=== PATIENT | male | born 1965 | race Caucasian/White ===

== ENCOUNTER 2020-12-29 08:54 | Emergency (ER) | payer OTHER, SELFPAY ==
[2020-12-29 09:02] VITALS: BP 115/69; PULSE 142; RESP 20; TEMP 36.3; O2SAT 97
--- NOTE | 2020-12-29 09:02 | ED.NEUROSD ---
HPI - Neuro Symptoms/Deficit General Chief Complaint: Suspected CVA Stated Complaint: knot on leg and now he is chills sweats dry mouth Time Seen by Provider: 12/29/20 09:02 Source: patient and RN notes reviewed
--- NOTE | 2020-12-29 09:14 | ED.SKABFB ---
HPI - Skin/Abscess/Foreign Bdy General Chief complaint: Skin/Abscess/Foreign Body Stated complaint: knot on leg and now he is chills sweats dry mouth Time Seen by Provider: 12/29/20 09:02 Source: patient and RN notes reviewed History of Present Illness HPI narrative: Patient is a 55-year-old male who presents the urgent care with complaints of an abscess on the right groin. Patient states that its been there for years and continues to come and go. Patient states he has had to have antibiotic treatment in the past for infection of the area. Patient has never had the abscess drained. States that he has had some chills and sweats as well as a lot of nausea. Denies of any use of [id number] medication however he does take hydrocodone daily for osteoarthritis pains. No other acute complaints. No acute distress noted. Patient aware of the plan of care. Some parts of this dictation were generated by voice recognition software and may contain typographical and/or grammatical inaccuracies. Related Data Home Medications Medication Instructions Recorded Confirmed atorvastatin 10 mg PO DAILY 12/29/20 12/29/20 gabapentin 400 mg PO QID 12/29/20 12/29/20 hydrocodone-acetaminophen 1 tablet PO Q4-6H PRN 12/29/20 12/29/20 lisinopril-hydrochlorothiazide 1 tablet PO DAILY 12/29/20 12/29/20 meloxicam 15 mg PO DAILY 12/29/20 12/29/20 Allergies Allergy/AdvReac Type Severity Reaction Status Date / Time No Known Allergies Allergy Verified 12/29/20 09:11 Review of Systems Review of Systems: Narrative: CONSTITUTIONAL: Denies fever, chills, or sweats. EYES: Denies visual changes, redness, or discharge. ENT: Denies rhinorrhea, congestion, sore throat, or otalgia. CARDIOVASCULAR: Denies chest pain, palpitations, or edema. RESPIRATORY: Denies cough or dyspnea. GASTROINTESTINAL: Denies abdominal pain, nausea, vomiting, or diarrhea. GENITOURINARY: Denies dysuria or hematuria. SKIN: Denies rash or itching. Reports of a knot on the right groin MUSCULOSKELETAL: Denies back pain, joint pain, or myalgia. NEUROLOGIC: Denies headache, numbness, or weakness. All other systems reviewed are negative, except as documented in HPI. PMFSH Comments At the time of my signature, I reviewed and agree with the nursing past medical, surgical, social, and family history. There is no relevant family history pertinent to the patient complaint. Exam Narrative: Exam Narrative: GENERAL: This is a well-nourished, well-developed patient, in no apparent distress. HEAD: normocephalic, atraumatic. EYES: PERRL. Sclera clear/white. Vision is grossly intact. EARS: External ears normal NOSE: External nose normal with no obvious nasal discharge, nares without redness, no rhinorrhea. THROAT: Mucous membranes moist NECK: Neck supple SKIN: 6 x 2 cm erythemic, edematous, ecchymotic abscess noted to the right groin with mild surrounding erythema noted, Very tender. good texture and turgor. NEURO: awake, alert, and oriented to person, place and time. There were no obvious focal neurologic abnormalities. EXTREMITIES: No clubbing, cyanosis, or edema. Course Vital Signs Vital signs: Vital Signs Temperature 97.4 F L 12/29/20 09:02 Pulse Rate 142 H 12/29/20 09:02 Respiratory Rate 20 12/29/20 09:02 Blood Pressure 115/69 12/29/20 09:02 Pulse Oximetry 97 12/29/20 09:02 Temperature 97.4 F L 12/29/20 09:02 Pulse Rate 142 H 12/29/20 09:02 Respiratory Rate 20 12/29/20 09:02 Blood Pressure 115/69 12/29/20 09:02 Pulse Oximetry 97 12/29/20 09:02 Reviewed MDM - Skin/Abscess/Foreign Bdy MDM Narrative Medical decision making narrative: Advised the patient to stop squeezing on the area. Do not try to pop the area . Use a warm compress for comfort and swelling. Continue to use your pain medication as needed for pain. Advised the patient to take the Zofran approximately 15 minutes before eating and then take the antibiotic. Complete the oral antibiotic
== END 2020-12-29 09:20 | disposition home or self-care (01) ==
PROVIDERS: Emergency Provider Nurse Practitioner Family; PCP Internal Medicine
DX: L02.214 Cutaneous abscess of groin (principal); M19.90 Unspecified osteoarthritis, unspecified site; E78.00 Pure hypercholesterolemia, unspecified; G62.9 Polyneuropathy, unspecified
CPT/HCPCS: 99213; G0463